=== PATIENT | male | born 1975 | race Two or more races ===

== ENCOUNTER 2025-03-05 17:26 | Emergency (ER) | payer OTHER ==
[~2025-03-05] VITALS: Ht 177.8 cm; Wt 119.3 kg
[2025-03-05] MEDS ORDERED: ZESTRIL10 M1 PO (18:03)
[2025-03-05] MEDS ORDERED: ORPHENADRINE CITRATE 100 MG TABLET PO STA (18:33)
[2025-03-05 19:14] VITALS: BP 132/83; O2SAT 99
== END 2025-03-05 19:15 | disposition home or self-care (01) ==
LOC: ER 17:54
DX: G44.209 Tension-type headache, unspecified, not intractable (principal); Z88.6 Allergy status to analgesic agent